=== PATIENT | female | born 1970 | race African-American/Black ===

== ENCOUNTER → 2017-02-28 | Outpatient (CLI) | payer BC ==
[~2017-02-28] MED LIST: EXCEDRIN; VITAMIN B12; VITAMIN C
[2017-02-28 09:28] LABS: BASOPHILS % 0.6 % (0.0-2.0); EOSINOPHILS % 1.1 % (0.0-5.0); HEMATOCRIT. 38.8 % (36.0-48.0); LYMPHOCYTES % 50.3 % (20.0-50.0); MEAN CORPUSCULAR HEMOGLOBIN 28.3 pg (28.0-32.0); MEAN CORPUSCULAR VOLUME 84.5 fL (81.0-99.0); MEAN PLATELET VOLUME 9.1 fl (7.4-10.4); MONOCYTES % 6.2 % (2.0-8.0); NEUTROPHILS % 41.8 % (40.0-76.0); PLATELET 202 x1000/uL (130-400); RED BLOOD CELL COUNT 4.59 mill/uL (4.2-5.4); RED CELL DISTRIBUTION WIDTH 13.9 % (11.6-14.6)
[2017-02-28 10:12] LABS: FOLIC ACID (FOLATE) SERUM 15.1 ng/mL (>5.38)
== END | disposition home or self-care (01) ==
LOC: LAB 08:41
PROVIDERS: ATTEND Internal Medicine Geriatric Medicine
DX: Z00.01 Encounter for general adult medical examination with abnormal findings (principal); R73.09 Other abnormal glucose
CPT/HCPCS: 36415; 82306; 82607; 82728; 82746; 83036; 83540; 83550; 84443; 85025; 86592

== ENCOUNTER → 2017-03-01 | Outpatient (CLI) | payer BC | END | disposition home or self-care (01) | LOC: MAMMO 09:00 | PROVIDERS: ATTEND Internal Medicine Geriatric Medicine | DX: Z12.31 Encounter for screening mammogram for malignant neoplasm of breast (principal) | CPT/HCPCS: G0202 ==

== ENCOUNTER → 2017-05-02 | Outpatient (CLI) | payer BC ==
[2017-05-02 11:27] LABS: VITAMIN B12 SERUM 324 pg/mL (211-911)
== END | disposition home or self-care (01) ==
LOC: LAB 10:10
PROVIDERS: ATTEND Internal Medicine Geriatric Medicine
DX: E55.9 Vitamin D deficiency, unspecified (principal); R73.09 Other abnormal glucose
CPT/HCPCS: 36415; 82306; 82607; 83036

== ENCOUNTER → 2017-11-18 | Outpatient (CLI) | payer BC ==
[2017-11-18 10:25] LABS: CLARITY URINE CLEAR (CLEAR); COLOR URINE YELLOW (YELLOW); KETONES URINE NEGATIVE (NEGATIVE); LEUKOCYTE ESTERASE URINE NEGATIVE (NEGATIVE); NITRITE URINE NEGATIVE (NEGATIVE); OCCULT BLOOD URINE NEGATIVE (NEGATIVE); PROTEIN URINE NEGATIVE (NEGATIVE); SPECIFIC GRAVITY URINE 1.014 (1.005-1.030); UROBILINOGEN URINE 0.2 E.U./dL (0.2-1.0)
[2017-11-18 10:26] LABS: BASOPHILS % 0.8 % (0.0-2.0); EOSINOPHILS % 1.5 % (0.0-5.0); HEMATOCRIT. 37.4 % (36.0-48.0); HEMOGLOBIN. 12.7 g/dL (12.0-16.0); MEAN CORPUSCULAR HEMOGLOBIN 28.5 pg (28.0-32.0); MEAN CORPUSCULAR VOLUME 84.2 fL (81.0-99.0); MEAN PLATELET VOLUME 8.6 fl (7.4-10.4); MONOCYTES % 4.7 % (2.0-8.0); PLATELET 201 x1000/uL (130-400); RED BLOOD CELL COUNT 4.44 mill/uL (4.2-5.4); RED CELL DISTRIBUTION WIDTH 13.6 % (11.6-14.6)
[2017-11-18 10:29] LABS: CHLORIDE 105 mEq/L (98-107)
[2017-11-18 10:37] LABS: LDL CHOLESTEROL 66 mg/dL (5-100)
[2017-11-18 10:39] LABS: HDL CHOLESTEROL 68 mg/dL (40-59)
[2017-11-18 11:21] LABS: VITAMIN B12 SERUM 347 pg/mL (211-911)
== END | disposition home or self-care (01) ==
LOC: CT 08:37
PROVIDERS: ATTEND Internal Medicine Geriatric Medicine
DX: Z00.01 Encounter for general adult medical examination with abnormal findings (principal); R51 Headache; N39.0 Urinary tract infection, site not specified; E55.9 Vitamin D deficiency, unspecified; R73.09 Other abnormal glucose
CPT/HCPCS: 36415; 70450; 80053; 80061; 81003; 82306; 82607; 83036; 83540; 84443; 85025; 86592; 87077; 87086

== ENCOUNTER → 2018-06-16 | Outpatient (CLI) | payer BC ==
[2018-06-16 14:10] LABS: CLARITY URINE CLOUDY (CLEAR); COLOR URINE YELLOW (YELLOW); KETONES URINE NEGATIVE (NEGATIVE); LEUKOCYTE ESTERASE URINE 2+ (NEGATIVE); NITRITE URINE NEGATIVE (NEGATIVE); OCCULT BLOOD URINE 1+ (NEGATIVE); PH URINE 5.5 (4.5-8.0); PROTEIN URINE NEGATIVE (NEGATIVE); SPECIFIC GRAVITY URINE 1.013 (1.005-1.030); UROBILINOGEN URINE 0.2 E.U./dL (0.2-1.0)
== END | disposition home or self-care (01) ==
LOC: LAB 13:24
PROVIDERS: ATTEND Internal Medicine Geriatric Medicine
DX: N39.0 Urinary tract infection, site not specified (principal)
CPT/HCPCS: 87077; 87186

== ENCOUNTER → 2018-12-29 | Outpatient (CLI) | payer BC ==
[2018-12-29 09:31] LABS: BASOPHILS % 0.6 % (0.0-2.0); EOSINOPHILS % 2.4 % (0.0-5.0); HEMATOCRIT. 38.5 % (36.0-48.0); HEMOGLOBIN. 12.6 g/dL (12.0-16.0); LYMPHOCYTES % 44.7 % (20.0-50.0); MEAN CORPUSCULAR VOLUME 85.6 fL (81.0-99.0); MEAN PLATELET VOLUME 8.5 fl (7.4-10.4); MONOCYTES % 6.8 % (2.0-8.0); NEUTROPHILS % 45.5 % (40.0-76.0); PLATELET 187 x1000/uL (130-400); RED CELL DISTRIBUTION WIDTH 13.1 % (11.6-14.6)
[2018-12-29 09:36] LABS: CLARITY URINE CLEAR (CLEAR); COLOR URINE YELLOW (YELLOW); KETONES URINE NEGATIVE (NEGATIVE); LEUKOCYTE ESTERASE URINE NEGATIVE (NEGATIVE); NITRITE URINE NEGATIVE (NEGATIVE); OCCULT BLOOD URINE NEGATIVE (NEGATIVE); PROTEIN URINE NEGATIVE (NEGATIVE); SPECIFIC GRAVITY URINE 1.012 (1.005-1.030); UROBILINOGEN URINE 0.2 E.U./dL (0.2-1.0)
[2018-12-29 10:18] LABS: CHLORIDE 108 mEq/L (98-107)
[2018-12-29 10:25] LABS: HDL CHOLESTEROL 56 mg/dL (40-59); LDL CHOLESTEROL 67 mg/dL (5-100); TOTAL IRON BINDING CAPACITY 323 ug/dL (250-450)
[2018-12-29 10:52] LABS: VITAMIN B12 SERUM 440 pg/mL (211-911)
== END | disposition home or self-care (01) ==
LOC: MAMMO 08:11
PROVIDERS: ATTEND Internal Medicine Geriatric Medicine
DX: Z12.31 Encounter for screening mammogram for malignant neoplasm of breast (principal); E55.9 Vitamin D deficiency, unspecified; N39.0 Urinary tract infection, site not specified
CPT/HCPCS: 36415; 77067; 80061; 81003; 82607; 83036; 83540; 83550; 84443; 86592

== ENCOUNTER → 2019-11-14 | Outpatient (CLI) | payer BC ==
[2019-11-14 11:28] LABS: CHLORIDE 109 mEq/L (98-107)
[2019-11-14 11:35] LABS: LDL CHOLESTEROL 78 mg/dL (5-100)
[2019-11-14 11:36] LABS: HDL CHOLESTEROL 62 mg/dL (40-59)
[2019-11-14 11:37] LABS: T4 FREE 1.17 ng/dL (0.76-1.46)
== END | disposition home or self-care (01) ==
LOC: LAB 10:17
PROVIDERS: ATTEND Internal Medicine Geriatric Medicine
DX: Z00.01 Encounter for general adult medical examination with abnormal findings (principal)
CPT/HCPCS: 36415; 80053; 80061; 82728; 82746; 83036; 83540; 84439; 84443; 84480; 86592

== ENCOUNTER → 2020-06-16 | Outpatient (CLI) | payer BC ==
[2020-06-16 08:02] LABS: BASOPHILS % 0.7 % (0.0-2.0); EOSINOPHILS % 1.9 % (0.0-5.0); HEMATOCRIT. 38.1 % (36.0-48.0); HEMOGLOBIN. 12.1 g/dL (12.0-16.0); LYMPHOCYTES % 46.5 % (20.0-50.0); MEAN CORPUSCULAR VOLUME 84.8 fL (81.0-99.0); MEAN PLATELET VOLUME 8.7 fl (7.4-10.4); MONOCYTES % 6.9 % (2.0-8.0); PLATELET 172 x1000/uL (130-400); RED BLOOD CELL COUNT 4.49 mill/uL (4.2-5.4)
[2020-06-16 09:17] LABS: CHLORIDE 108 mEq/L (98-107)
== END | disposition home or self-care (01) ==
LOC: LAB 07:17
PROVIDERS: ATTEND Internal Medicine Geriatric Medicine
DX: F41.1 Generalized anxiety disorder (principal); R00.1 Bradycardia, unspecified; Z03.818 Encounter for observation for suspected exposure to other biological agents ruled out
CPT/HCPCS: 36415; 80053; 84443; 85025; 87426

== ENCOUNTER → 2020-06-17 | Outpatient (CLI) | payer BC | END | disposition home or self-care (01) | LOC: MAMMO 08:01 | PROVIDERS: ATTEND Internal Medicine Geriatric Medicine | DX: N64.4 Mastodynia (principal); N63.10 Unspecified lump in the right breast, unspecified quadrant | CPT/HCPCS: 77066 ==

== ENCOUNTER → 2020-08-14 | Outpatient (CLI) | payer BC | END | disposition home or self-care (01) | LOC: US 08:29 | PROVIDERS: ATTEND Internal Medicine Geriatric Medicine | DX: N60.01 Solitary cyst of right breast (principal); N60.02 Solitary cyst of left breast | CPT/HCPCS: 76642 ==

== ENCOUNTER → 2021-05-08 | Day surgery (SDC) | payer BC ==
[2021-05-08 10:01] LABS: BASOPHILS % 0.7 % (0.0-2.0); EOSINOPHILS % 1.8 % (0.0-5.0); HEMATOCRIT. 36.5 % (36.0-48.0); HEMOGLOBIN. 12.1 g/dL (12.0-16.0); LYMPHOCYTES % 48.2 % (20.0-50.0); MEAN CORPUSCULAR HEMOGLOBIN 27.5 pg (28.0-32.0); MEAN CORPUSCULAR VOLUME 82.9 fL (81.0-99.0); MEAN PLATELET VOLUME 8.7 fl (7.4-10.4); MONOCYTES % 5.3 % (2.0-8.0); PLATELET 202 x1000/uL (130-400); RED BLOOD CELL COUNT 4.41 mill/uL (4.2-5.4); RED CELL DISTRIBUTION WIDTH 13.6 % (11.6-14.6)
[2021-05-08 10:16] LABS: CHLORIDE 107 mEq/L (98-107)
[2021-05-08 10:23] LABS: LDL CHOLESTEROL 77 mg/dL (5-100)
[2021-05-08 10:24] LABS: HDL CHOLESTEROL 69 mg/dL (40-59); TOTAL IRON BINDING CAPACITY 326 ug/dL (250-450)
[2021-05-08 10:24] LABS: CLARITY URINE CLEAR (CLEAR); COLOR URINE YELLOW (YELLOW); KETONES URINE TRACE (NEGATIVE); LEUKOCYTE ESTERASE URINE NEGATIVE (NEGATIVE); NITRITE URINE NEGATIVE (NEGATIVE); OCCULT BLOOD URINE NEGATIVE (NEGATIVE); PROTEIN URINE NEGATIVE (NEGATIVE); SPECIFIC GRAVITY URINE 1.013 (1.005-1.030); UROBILINOGEN URINE 0.2 E.U./dL (0.2-1.0)
[2021-05-08 11:25] LABS: VITAMIN B12 SERUM 393 pg/mL (211-911)
[2021-05-08 12:11] LABS: FERRITIN 17 ng/mL (10-291)
[2021-05-08 14:46] LABS: HEPATITIS B SURFACE ANTIGEN NEGATIVE
== END | disposition home or self-care (01) ==
LOC: CARD 08:45
PROVIDERS: ATTEND Internal Medicine Geriatric Medicine
DX: I34.0 Nonrheumatic mitral (valve) insufficiency (principal); I31.3 Pericardial effusion (noninflammatory); I10 Essential (primary) hypertension; N39.0 Urinary tract infection, site not specified; R00.1 Bradycardia, unspecified; F41.1 Generalized anxiety disorder; Z79.899 Other long term (current) drug therapy; Z98.890 Other specified postprocedural states
CPT/HCPCS: 36415; 80053; 80061; 81003; 82306; 82607; 82728; 82746; 83036; 83540; 83550; 84443; 85025; 86592; 86705; 86709; 86803; 87340; 93306

== ENCOUNTER → 2021-12-30 | Outpatient (CLI) | payer BC ==
[2021-12-30 12:48] LABS: BASOPHILS % 0.4 % (0.0-2.0); EOSINOPHILS % 2.5 % (0.0-5.0); HEMOGLOBIN. 11.9 g/dL (12.0-16.0); LYMPHOCYTES % 42.9 % (20.0-50.0); MEAN CORPUSCULAR HEMOGLOBIN 27.8 pg (28.0-32.0); MEAN CORPUSCULAR VOLUME 84.2 fL (81.0-99.0); MEAN PLATELET VOLUME 8.5 fl (7.4-10.4); MONOCYTES % 6.2 % (2.0-8.0); PLATELET 184 x1000/uL (130-400); RED BLOOD CELL COUNT 4.28 mill/uL (4.2-5.4); RED CELL DISTRIBUTION WIDTH 13.6 % (11.6-14.6)
[2021-12-30 12:55] LABS: CHLORIDE 106 mEq/L (98-107)
[2021-12-30 13:40] LABS: VITAMIN B12 SERUM 378 pg/mL (211-911)
== END | disposition home or self-care (01) ==
LOC: LAB 12:20
PROVIDERS: ATTEND Internal Medicine Geriatric Medicine
DX: F41.9 Anxiety disorder, unspecified (principal)
CPT/HCPCS: 36415; 80053; 82607; 82746; 84443; 85025

== ENCOUNTER 2022-02-04 08:42 | Emergency (ER) | payer BC ==
[~2022-02-04] VITALS: Ht 162.6 cm; Wt 66.0 kg
[2022-02-04 09:31] VITALS: BP 156/85
[2022-02-04] MEDS ORDERED: CARBAMAZEPINE 100MG TABLET CHEW PO ONE (10:30)
[2022-02-04] MEDS ORDERED: BACLOFEN 10MG TABLET PO ONE (10:30)
[2022-02-04] MEDS ORDERED: CYCL10TA21 MT (11:28)
[2022-02-04] MEDS ORDERED: IBUP-2028 MT (11:28)
[2022-02-04] MEDS ORDERED: CARB100C9 MT (11:28)
== END 2022-02-04 12:50 | disposition home or self-care (01) ==
LOC: ER 08:42
DX: R51.9 Headache, unspecified (principal); R20.8 Other disturbances of skin sensation; R25.3 Fasciculation; M26.601 Right temporomandibular joint disorder, unspecified
CPT/HCPCS: 81025; 99283